=== PATIENT | male | born 1950 | race Caucasian/White ===

== ENCOUNTER 2016-10-17 15:25 | Emergency (ER) | payer MEDICARE, OTHER ==
[2016-10-17] MEDS ORDERED: LIDOCAINE 1% 10 ML VIAL INJ ONE (16:19)
[2016-10-17] MEDS ORDERED: POVIDONE IODINE 10 % 15 ML UD TOP ONE (16:23)
--- NOTE | 2016-10-17 16:46 | ED.PDOC ---
History of Present Illness - General Chief Complaint: Laceration Time Seen by Provider: 10/17/16 16:15 Source: patient Exam Limitations: no limitations - History of Present Illness Initial Comments: Patient presents with a laceration after falling backwards from a ladder. He was only on the first and second rung. He said his head struck something on the ground, possibly metal. He did not lose consciousness. He has no neurological complaints. No LEHMAN/N/V. He is not on any anticoagulants. Timing/Duration: 1-3 hours Severity: moderate Improving Factors: nothing Worsening Factors: nothing Associated Symptoms: denies symptoms Review of Systems - Review of Systems Constitutional: States: no symptoms reported EENTM: States: no symptoms reported Respiratory: States: no symptoms reported Cardiology: States: no symptoms reported Gastrointestinal/Abdominal: States: no symptoms reported Genitourinary: States: no symptoms reported Musculoskeletal: States: no symptoms reported Skin: States: see HPI Neurological: States: no symptoms reported Endocrine: States: no symptoms reported Hematologic/Lymphatic: States: no symptoms reported Physical Exam - Physical Exam General Appearance: Alert Eye Exam: bilateral normal Ears, Nose, Throat: normal ENT inspection Neck: non-tender, full range of motion, supple Respiratory: lungs clear Cardiovascular/Chest: regular rate, rhythm Gastrointestinal/Abdominal: normal bowel sounds, non tender, soft 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 7 cc of lidocaine without epinephrine was used to gain excellent local anesthesia. Laceration was irrigated with 30 ml of sterile saline. 11 mile were placed and there was good wound edge approximation. Area was clean and hemostatic at the completion. Tetanus booster given. Departure - Departure Clinical Impression: Laceration Disposition: Discharge to Home or Self Care Condition: Good Departure Forms: ED Discharge - Pt. Copy, Patient Portal Self Enrollment Diet: resume usual diet Activity: increase activity as tolerated Additional Instructions: Return to clinic for staple removal in 7-10 days. Tylenol only for pain control.
[2016-10-17] MEDS ORDERED: TETANUS,DIPHTHERIA,PERTUSSIS 1 EA SYG IM ONE (16:48)
[2016-10-17 17:38] VITALS: TEMP 97.9
[2016-10-17 17:40] VITALS: BP 129/73; O2SAT 95
== END 2016-10-17 17:15 | disposition home or self-care (01) ==
LOC: ER 15:25
DX: S01.01XA Laceration without foreign body of scalp, initial encounter (principal); Z23 Encounter for immunization; W11.XXXA Fall on and from ladder, initial encounter